=== PATIENT | female | born 1940 | race African-American/Black ===

== ENCOUNTER 2020-01-29 20:31 | Emergency (ER) | payer OTHER ==
[~2020-01-29] VITALS: Ht 152.4 cm; Wt 68.0 kg
[2020-01-29 21:50] VITALS: BP 157/71
[2020-01-29] MEDS ORDERED: ALLOPURINOL 10100 M3 PO (21:59)
[2020-01-29] MEDS ORDERED: ASA81BEC PO (22:00)
[2020-01-29] MEDS ORDERED: NORVASC 2.5 MG2.5 M1 PO (22:00)
[2020-01-29] MEDS ORDERED: CHLORTHALIDONE25 MG PO (22:01)
[2020-01-29] MEDS ORDERED: CLONIDINE HCL0.2 M2 PO (22:01)
[2020-01-29] MEDS ORDERED: PLAVIX 75 MG TA75 MG PO (22:01)
[2020-01-29] MEDS ORDERED: DIAZEPAM 10 MG10 M1 PO (22:06)
[2020-01-29] MEDS ORDERED: HYDRALAZINE 2525 M1 PO (22:07)
[2020-01-29] MEDS ORDERED: IRON325 PO (22:07)
[2020-01-29] MEDS ORDERED: GLIMEPIRIDE4 MG PO (22:07)
[2020-01-29] MEDS ORDERED: ISOSORBIDE MONO30 M1 PO (22:08)
[2020-01-29] MEDS ORDERED: IRBESARTAN300 MG PO (22:08)
[2020-01-29] MEDS ORDERED: LATANOPROST 0.7.5 ML EA. EYE (22:09)
[2020-01-29] MEDS ORDERED: BYSTOLIC10 MG PO (22:10)
[2020-01-29] MEDS ORDERED: METFORMIN HCL500 M3 PO (22:10)
[2020-01-29] MEDS ORDERED: ROXICODONE5 M2 PO (22:11)
[2020-01-29] MEDS ORDERED: KLOR-CON 10 ER10 MEQ PO (22:12)
[2020-01-29] MEDS ORDERED: PIOGLITAZONE15 MG PO (22:12)
== END 2020-01-29 22:45 | disposition home or self-care (01) ==
LOC: ER 20:31
DX: S39.012A Strain of muscle, fascia and tendon of lower back, initial encounter (principal); S09.90XA Unspecified injury of head, initial encounter; Z88.8 Allergy status to other drugs, medicaments and biological substances; Z91.013 Allergy to seafood; W19.XXXA Unspecified fall, initial encounter; Y93.89 Activity, other specified; Y92.89 Other specified places as the place of occurrence of the external cause; Y99.8 Other external cause status

== ENCOUNTER 2020-05-10 14:06 | Inpatient (IN) | payer OTHER ==
[~2020-05-10] VITALS: Ht 152.4 cm; Wt 85.3 kg
[~2020-05-10 14:06] MED LIST: ALLOPURINOL 10100 M3 PO; ASA81BEC PO; BYSTOLIC10 MG PO; CHLORTHALIDONE25 MG PO; CLONIDINE HCL0.2 M2 PO; DIAZEPAM 10 MG10 M1 PO; GLIMEPIRIDE4 MG PO; HYDRALAZINE 2525 M1 PO; IRBESARTAN300 MG PO; IRON325 PO; ISOSORBIDE MONO30 M1 PO; KLOR-CON 10 ER10 MEQ PO; LATANOPROST 0.7.5 ML EA. EYE; METFORMIN HCL500 M3 PO; NORVASC 2.5 MG2.5 M1 PO; PIOGLITAZONE15 MG PO; PLAVIX 75 MG TA75 MG PO; ROXICODONE5 M2 PO
[2020-05-10 14:07] VITALS: BP 180/71
[2020-05-10 14:51] LABS: HEMATOCRIT 25.6 % (37.0-47.0); HEMOGLOBIN 7.6 gm/dL (12.0-15.0); MCHC 29.6 g/dL (28.0-37.0)
[2020-05-10 14:54] LABS: MCH 19.5 pg (26.0-34.0); PLATELET COUNT 388 thou/uL (150-400); RBC 3.89 mil/uL (4.20-5.00); WBC 6.4 thou/uL (4.0-11.0)
[2020-05-10] MEDS ORDERED: METFORMIN HCL500 M3 PO (14:54)
[2020-05-10] MEDS ORDERED: PERCOCET 10-321 EAC1 PO (14:55)
[2020-05-10] MEDS ORDERED: GLIMEPIRIDE4 MG PO (14:55)
[2020-05-10] MEDS ORDERED: IRBESARTAN75 MG PO (14:56)
[2020-05-10 14:57] LABS: APTT 26.4 Seconds (24.5-32.8); INR 1.1; PROTIME 10.8 Seconds (9.3-11.4)
[2020-05-10] MEDS ORDERED: KLOR-CON 10 ER10 MEQ PO (14:57)
[2020-05-10] MEDS ORDERED: CHLORTHALIDONE25 MG PO (14:58)
[2020-05-10] MEDS ORDERED: PLAVIX 75 MG TA75 M1 PO (14:58)
[2020-05-10] MEDS ORDERED: NORVASC 2.5 MG2.5 M1 PO (14:58)
[2020-05-10] MEDS ORDERED: HYDRALAZINE 2525 M1 PO (14:59)
[2020-05-10 15:00] LABS: ANION GAP 10 mmol/L (7-16); BUN 15 mg/dL (7-18); CALCIUM 8.8 mg/dL (8.5-10.1); CHLORIDE 107 mmol/L (98-107); CO2 25 mmol/L (21-32); CREATININE 1.4 mg/dL (0.6-1.0); GLUCOSE 101 mg/dL (74-106); POTASSIUM 3.5 mmol/L (3.5-5.1); SODIUM 142 mmol/L (136-145)
[2020-05-10] MEDS ORDERED: PIOGLITAZONE15 MG (15:00)
[2020-05-10] MEDS ORDERED: BIDIL TABLET1 EACH PO (15:00)
[2020-05-10] MEDS ORDERED: CATAPRES0.1 MG PO (15:00)
[2020-05-10] MEDS ORDERED: VYZULTA5 ML OPHTHALMIC (15:00)
[2020-05-10] MEDS ORDERED: ALLOPURINOL 10100 M3 PO (15:01)
[2020-05-10] MEDS ORDERED: BYSTOLIC10 MG PO (15:01)
[2020-05-10] MEDS ORDERED: LANTUS SUBQ (15:02)
[2020-05-10 15:10] LABS: ALBUMIN 3.1 g/dL (3.4-5.0); MAGNESIUM 1.3 mg/dL (1.8-2.4); SGOT 26 U/L (15-37); SGPT 13 U/L (30-65); TOTAL BILIRUBIN 0.4 mg/dL (0.2-1.0); TOTAL PROTEIN 6.4 g/dL (6.4-8.2); TROPONIN-I <0.06 ng/mL (<0.06)
[2020-05-10 15:41] LABS: URINE BILIRUBIN NEGATIVE (Negative); URINE BLOOD 1+ (Negative); URINE CLARITY CLEAR; URINE COLOR YELLOW; URINE GLUCOSE-RANDOM* NEGATIVE (Negative); URINE KETONES NEGATIVE (Negative); URINE LEUKOCYTES-REFLEX NEGATIVE (Negative); URINE NITRITE-REFLEX NEGATIVE (Negative); URINE PROTEIN (DIPSTICK) NEGATIVE (Negative); URINE UROBILINOGEN 0.2 E.U./dl (0.2-1.0)
[2020-05-10 15:45] VITALS: BP 156/84
--- NOTE | 2020-05-10 16:02 | NUR ---
DR. ADAME HERE TO EXAMINE PATIENT
[2020-05-10 16:07] LABS: BACTERIA-REFLEX None Seen /HPF (None Seen); SQUAMOUS 0-3 Few /LPF (0-3); URINE RBC 0-2 Rare /HPF (0-2); URINE WBC-REFLEX 0-5 Rare /HPF (0-5)
[2020-05-10 16:08] LABS: CASTS None Seen /LPF (None Seen); CRYSTALS None Seen /LPF (None Seen)
[2020-05-10 16:12] LABS: ABSOLUTE NEUTROPHILS 4.9 thou/uL (1.4-8.2); ANISOCYTOSIS 1+; MICROCYTES 1+
[2020-05-10 16:17] LABS: AMP/METHAMP Negative (Negative); BARBITURATES Negative (Negative); BENZODIAZEPINES Negative (Negative); COCAINE Negative (Negative); METHADONE Negative (Negative); OPIATES Negative (Negative); PCP Negative (Negative)
[2020-05-10 17:21] VITALS: BP 182/87
--- NOTE | 2020-05-10 17:34 | NUR ---
PT. REPORT CALLED TO RECEIVING RN.
[2020-05-10 17:35] VITALS: BP 207/87
--- NOTE | 2020-05-10 17:41 | NUR ---
PT. TO CT SCAN WITHOUT CONTRAST PER DR. ADAME ORDERS.
[2020-05-10 18:48] VITALS: BP 156/84
[2020-05-10 18:50] LABS: ABSOLUTE RETIC COUNT 0.0589 10^6/uL; OBSERVED RETIC COUNT 1.47 % (0.6-2.6)
[2020-05-10 19:00] LABS: % SATURATION 4 % (20-39); IRON 12 ug/dL (50-170); TIBC 334 ug/dL (250-450)
[2020-05-10 19:00] LABS: CALCIUM 8.4 mg/dL (8.5-10.1); CREATININE 1.2 mg/dL (0.6-1.0); POTASSIUM 3.4 mmol/L (3.5-5.1)
[2020-05-10 19:38] LABS: TSH 0.739 uIU/mL (0.358-3.740)
--- NOTE | 2020-05-10 20:04 | NUR ---
PT CARE ASSUMED AT 1745. ASSESSMENT CHARTED. MEDICATION CHARTED. PT FALL AT HOME. LOW BLOOD SUGAR IN EMERGENCY AND IN PT ROOM. APPLE JUICE ADMINISTERED. NEW POC BLOOD SUGAR CAME BACK AT 109.
[2020-05-10 20:11] LABS: FOLIC ACID 14.2 ng/mL (8.6-58.9)
--- NOTE | 2020-05-10 20:35 | NUR ---
PT ADMITTED APPROX 1800HRS TOWARDS END OF SHIFT CHANGE. ADMISSION ASSESSMENT COMPLETED BY THIS NURSE ASSISTANCE BY DAUGHTER AT BEDSIDE. PT ADM WITH HYPOGLYCEMIA. PRIOR TO SHIFT CHANGE BS REPORTED TO BE 41. CRACKERS/ORANGE JUICE GIVEN BS RECHECKED 107 THEN RECHECKED AGAIN 90. EATING DISORDER SPECIALIST NOTIFIED. CONTINUING TO MONITOR EATING DISORDER SPECIALIST ADDRESSING ORDERS AT THIS TIME
[2020-05-11] VITALS: BP 151/75
[2020-05-11 04:30] VITALS: BP 175/77
[2020-05-11 04:41] LABS: HEMATOCRIT 26.1 % (37.0-47.0); HEMOGLOBIN 7.8 gm/dL (12.0-15.0); MCH 19.9 pg (26.0-34.0); MCV 66.2 fL (80.0-100.0); PLATELET COUNT 401 thou/uL (150-400); RBC 3.94 mil/uL (4.20-5.00); WBC 6.6 thou/uL (4.0-11.0)
[2020-05-11 05:08] LABS: ANISOCYTOSIS 3+; HYPOCHROMASIA 3+; MICROCYTES 3+; POIKILOCYTOSIS 2+
[2020-05-11 05:09] LABS: LARGE PLATELETS OCCASIONAL; OVALOCYTES 1+; SCHISTOCYTES 1+
[2020-05-11 07:54] VITALS: BP 158/91
--- NOTE | 2020-05-11 08:05 | NUR ---
ASSUMED CARE OF PT AT SHIFT CHANGE, SHE IS A&OX4, PT USES A WALKER AT HOME NORMALLY, SHE'S UPSET SHE HAS TO CALL US TO GO TO [facility]; EXPLAINED THE SAFETY ISSUES INVOLVED TOMAS W/HER HAVING BEEN FOUND DOWN WITH LOW BG. HTN NOTED THROUGHOUT NIGHT, HAS HYDRALAZINE PRN. LOW BG THIS A.M. NO MEDS ON EMAR TO GIVE SO GAVE TWO APPLE JUICES AND REACHED OUT TO PHYSICIAN; ADDRESSED PT'S HOME MED LIST LET THE DOCTOR KNOW MED REC READY, NPO STATUS WITH LOW BG (HAS D5 NS RUNNING). ENCOURAGED PT TO USE CALL LIGHT FOR ANY NEEDS. SHES HUNGRY. NPO YET NO PROCEDURE SCHEDULED; ASKED PHYSICIAN THIS WELL. SEE SEPARATE INTERVENTIONS FOR ASSESSMENTS. ENCOURAGED PT TO USE CALL LIGHT FOR ANY NEEDS
--- NOTE | 2020-05-11 10:10 | EKG ---
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
[2020-05-11 11:35] VITALS: BP 162/80
[2020-05-11 15:03] VITALS: BP 146/68
--- NOTE | 2020-05-11 15:24 | NUR ---
ORTHO B/PS: LAYING - 158/61 SITTING - 179/81 STANDING - 197/97
--- NOTE | 2020-05-11 15:39 | NUR ---
ORTHOSTATICS: LAYING - 158/61 SITTING - 179/81 STANDING - 197/97
[2020-05-11 19:20] VITALS: BP 147/76
--- NOTE | 2020-05-11 21:53 | NUR ---
ASSSESSMENTS CHARTED, MEDS CHARTED GIVEN. PATIENT RESTING IN ROOM DURING SHIFT. TRYING EXTERNAL FEMALE CATHETER DURING SLEEP TONIGHT. C/O CHRONIC PAIN 07/08. SAYS SHE VISITS A PAIN CLINIC IN ON LICENSE OF [facility], SPOKE WITH FORECLOSURE FIELD INSPECTOR TO GET MEDS RESTARTED. ACHS ON SSI. FALL PRECAUTIONS IN PLACE DURING SHIFT. PATIENT WANTING TO KNOW ABOUT RESULTS FROM SCANS AND LABS ABOUT OCCULT BLOOD.
[2020-05-12] VITALS (8 sets, daily range): BP systolic 123–156; BP diastolic 57–97
[2020-05-12 04:09] LABS: CALCIUM 7.9 mg/dL (8.5-10.1); CREATININE 1.3 mg/dL (0.6-1.0); POTASSIUM 3.5 mmol/L (3.5-5.1)
[2020-05-12 05:37] LABS: GLYCOHEMOGLOBIN (HGB A1C) 5.7 % (4.8-5.6)
--- NOTE | 2020-05-12 12:16 | HC ---
[facility] [place] [address] CONSULTATION Name: PILO GUERRIER Room #: 209-P ADM IN M.R.#: [id number] Admission: 05/10/20 Attend Phys: Reggie Odom MD Discharge: Date of : 38 Report #: [id number] THIS REPORT FOR: cc: TANNER - Family physician unknown TANNER - Family physician unknown Sofi Lowry MD ~ CC: Reggie Clinton MD [facility] unknown DATE OF SERVICE: 05/11/2020 ENDOCRINE CONSULTATION CONSULTING PHYSICIAN: Dr. Fischer. REASON FOR CONSULTATION: Type 2 diabetes mellitus, hypoglycemia. HISTORY OF PRESENT ILLNESS: This is a very pleasant 79-year-old female patient whose medical background is significant for multiple medical issues including type 2 diabetes mellitus, hypertension as well as a distant history of CVA. The patient notes that she has had type 2 diabetes mellitus for over 20 years. She has done well historically with multiple hemoglobin A1c in the 6 range over the past 2 years. She does point out that due to her hemoglobin A1c moving just above 7 that Lantus insulin was added to her regimen at a low dose of 6 units daily that was later on tapered down to 4 units daily. Her baseline regimen consists of metformin 500 mg b.i.d. as well as glimepiride 4 mg daily. She notes that she monitors her blood glucose values routinely and that they typically range from 90-150 mg/dL. She does not typically have issues with hypoglycemia. However, on the day of admission, the patient felt extremely tired, dizzy and as she tried to arise from bed she felt too weak and fallen to the floor and was lying down on the floor for 5 hours before her son found her and contacted EMS. On their arrival, her blood glucose was at 44 mg/dL. The patient was subsequently admitted for further care and monitoring. The patient is not aware of issues with diabetic retinopathy or neuropathy. She has never had issues with coronary artery disease. While she is not aware of a specific history of chronic kidney disease she seems to have issues in this regard. The patient is also known to have hypertension and is maintained on a combination of irbesartan 300 mg daily, amlodipine 10 mg daily, chlorthalidone 25 mg daily and hydralazine 25 mg q.i.d. Also, she is on clonidine 0.2 mg p.o. b.i.d. [address] [address] CONSULTATION Name: PILO GUERRIER Room #: 209-P [facility] IN .R.#: [id number] Admission: 05/10/20 Attend Phys: Reggie Odom MD Discharge: Date of : 38 Report #: [id number] While the patient denies the issue of CAD, she is maintained on Plavix 75 mg daily and Imdur 30 mg daily. REVIEW OF SYSTEMS: CONSTITUTIONAL: Fatigue, tiredness, no fever, chills or body weight changes. HEENT: Negative for sore throat, sinus pain or ear drainage. PULMONARY: No shortness of breath, cough or hemoptysis. CARDIAC: Negative for chest pain, palpitations, but she possibly had endured syncope prior to presentation. No chest pain. GASTROINTESTINAL: Negative for abdominal pain, nausea, vomiting or changes in bowel frequency. NEUROLOGY: Negative for seizure activity, severe frequent headaches, but possibly positive for loss of consciousness. DERMATOLOGY: Negative for rash, ulceration, discoloration or other major abnormalities. UROLOGY: Negative for dysuria, hematuria, or frequency. Otherwise, review of systems noncontributory other than those mentioned in HPI. PAST MEDICAL HISTORY: 1. Type 2 diabetes mellitus. 2. Hypertension. 3. 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 4. Gout. 5. Osteoarthritis. PAST SURGICAL HISTORY: Cholecystectomy, hysterectomy, colon surgery. FAMILY HISTORY: Noted for breast cancer and lung cancer. ALLERGIES: THE PATIENT IS ALLERGIC TO IODINATED CONTRAST AND TO SHELLFISH. SOCIAL HISTORY: The patient lives at an assisted living facility. She has 5 children. She had quit smoking more than 15 years ago. Denies use of alcohol. PHYSICAL EXAMINATION: GENERAL: Pleasant -Nigerien elderly patient who is not in apparent pain or distress. VITAL SIGNS: Blood pressure is 162/80 mmHg, heart rate is 70 beats per minute, respiration 18 per minute, temperature 36.8 degrees Celsius. CONSTITUTIONAL: The patient is sitting upright in bed, appears comfortable, not in apparent distress. HEENT: Anicteric sclerae. Intact extraocular motions. NECK: Supple, without JVD or thyromegaly. CHEST: Noted for moderate entry bilaterally with scattered rales. HEART: Regular rate and rhythm without murmurs or gallops. ABDOMEN: Soft, lax. No guarding. Active bowel sounds. [address] [address] CONSULTATION Name: FAREEDPILO PINA Room #: 209-P [facility] IN M.R.#: [id number] Admission: 05/10/20 Attend Phys: Reggie Odom MD Discharge: Date of : 38 Report #: [id number] EXTREMITIES: Lower extremity exam noted for trace ankle edema, skin breaks, ulcerations. Pedal pulses are appreciated. NEUROLOGIC: Awake, alert and oriented to time, place and person. The remainder of her examination is nonfocal. PSYCHIATRIC: Pleasant, interactive. Normal mood and affect. LABORATORY DATA: On arrival to the ER, her blood glucose was 41 and had risen to 107, 121, but then dropped later on to 60 mg/dL earlier this morning and is currently at 125 mg/dL. Sodium 143, potassium 3.4, chloride 108, CO2 of 25, anion gap 10, BUN 14, creatinine 1.2, AST 26, total bilirubin 0.4, calcium 8.4, magnesium 1.3, alkaline phosphatase 60, ALT 13, total protein 6.4, albumin 3.1, EGFR 52. CPK 264. Troponin is negative. BNP 1085. INR 1.1. White blood count 6.6, hemoglobin 7.8, hematocrit 26.1, platelets 401. TSH is 0.739. ASSESSMENT AND PLAN: 1. Hypoglycemia. As noted above, the patient presented in the context of severe hypoglycemia likely due to her current therapeutic regimen. I had a lengthy discussion with the patient about the importance of avoiding hypoglycemia in the future, which she understands and agrees with. Noticeably, the patient has had recurring mild to moderate hypoglycemia following her initial stabilization. Her last documented hypoglycemic episode at 60 was about 6 hours ago. That said, I would ____ the patient to maintain inpatient monitoring until we have effectively ensured the full resolution of hypoglycemia. Going forward, I advised the patient to fully discontinue Lantus insulin given the small dose that she is on, as well as DC glimepiride and switch over to glipizide XL 5 mg daily on the hopes of avoiding hypoglycemia going forward. In the immediate setting, we will continue to monitor her hypoglycemia closely and to respond to hypoglycemic occurring as per the [facility] hypoglycemia protocol. 2. Type 2 diabetes mellitus. As noted above, the patient has historically maintained a fairly well controlled outlook of type 2 diabetes mellitus and has been following routinely with Dr. Clinton. Reportedly, her hemoglobin A1c was uncontrolled for the first time in a while a few months ago, which prompted the use of low-dose insulin. I will check a hemoglobin A1c today to assess her overall outlook. As noted above, I have made recommendations with the main goal of reducing her risk of hypoglycemia, especially that she lives alone. I will defer longer term adjustments to Dr. Clinton; however, I explained to the patient that even if we end up settling for a hemoglobin A1c that is slightly above 7, so as to avoid hypoglycemia that that would be a reasonable compromise to make. 3. Hypertension. The patient is maintained on multiple agents for blood pressure control. She has been resumed on Bystolic, Imdur, hydralazine, and still continues to have difficulties controlling her blood pressure during this hospital stay. I will defer further therapeutic adjustments to the managing [address] [address] CONSULTATION Name: FAREEDPILOE Room #: 209-P ADM IN M.R.#: [id number] Admission: 05/10/20 Attend Phys: Reggie Odom MD Discharge: Date of : 38 Report #: [id number] primary hospital medicine team. I certainly appreciate this consultation by Dr. Fischer. <ELECTRONICALLY SIGNED> By: Sofi Lowry MD 05/12/20 1216 1403 1709 Sofi Lowry MD /nt
[2020-05-12 14:31] LABS: HEMOGLOBIN 7.4 gm/dL (12.0-15.0)
--- NOTE | 2020-05-12 16:40 | NUR ---
PT ALERT AND ORIENTED WITH FORGETFULNESS. VSS. SEEN BY DR. RICHEY. ORDERS NOTED. NO RESPIRATORY OR CARDIAC DISTRESS NOTED. PT PROGRESSING WELL TOWARDS DISCHARGE GOAL. WILL CONTINUE TO MONITOR.
[2020-05-13] VITALS (7 sets, daily range): BP systolic 121–157; BP diastolic 54–66
--- NOTE | 2020-05-13 04:57 | NUR ---
ALERT AND OREINTED X4. LUNGS ARE CLEAR THROUGHOUT. ON ROOM AIR. ABDOMEN IS ROUND AND SOFT. BOWEL SOUNDS ACTIVE X4. COMPLAINTS OF LEFT UPPER LEG PAIN AND ULTRSOUND DONE DUE TO COMPLAINTS OF PAIN PER RADIOLOGY. RESULTS NEGATIVE PER RADIOLOGY. PAIN MEDS GIVEN FOR AREA. PT STATES DUE TO A HOME FALL SHE HAD AT HOME. PT NEED STRENGHTHENING BEFORE RETURNS TO HOME. USES A WALKER AND A BEDSIDE COMMODE FOR ASSISTANCE AND NURSING STAFF SUPPORT. ICE PACK HELPS THAT AREA FOR DISCOMFORT AND MEDS. CALL LIIGHT WITHIN REACH IF NEEDS ASSISTANCE
--- NOTE | 2020-05-13 10:56 | NUR ---
Sp with patient by phone. Patient resides in independent apt at [facility]. She reports all needs on one level and uses a walker for ambulation. Patient admits post fall at home. She is interested in HH care at [facility] and [facility]. Called referral line for [facility] with [facility]. [place]. Patient agreeable to HH care and not preference for HH agency. Her PCP is Dr Kirby [phone]. Resources given for private duty and lifeline services given to patient.
--- NOTE | 2020-05-13 11:22 | NUR ---
FAXED REFERRAL TO [facility] SPOKE WITH YAMIL IN INTAKE SHE RECEIVED REFERRAL AND WILL ACCEPT AT [place].
[2020-05-13] MEDS ORDERED: HYDRALAZINE 5050 MG PO (11:52)
[2020-05-13] MEDS ORDERED: VOLTAREN GEL 1100 G1 TOP (11:52)
[2020-05-13] MEDS ORDERED: B-12500 MCG PO (11:52)
[2020-05-13] MEDS ORDERED: COZAAR 50 MG TA50 M1 PO (11:52)
[2020-05-13] MEDS ORDERED: FERREX 150 PLU1 EAC1 PO (11:52)
[2020-05-13] MEDS ORDERED: GLUCOPHAGE1000 MG PO (11:52)
[2020-05-13] MEDS ORDERED: CATAPRES0.1 MG PO (11:55)
--- NOTE | 2020-05-13 12:51 | NUR ---
RECEIVED PT'S CARE AROUND 0720; PT. ON BED; AOX4; DURING AM ASSESSMENT ON CHAIR; NO C/O PAIN; ST. PRN PAIN MEDICATION GIVEN BEFORE SHIFT CHANGE HELPED WITH PAIN; AM MEDICATION GIVEN & EDUCATED ABOUT NEW MEDICATION; EDUCATED ABOUT FALL PREVENTIONS; ST. UNDERSTANDING; EDUCATED ABOUT D/C PROCESS; ST. UNDERSTANDING; SR ON THE MONITOR; PT WORKED WITH PT.; TOLERATED WELL; D/C ORDERS ON PLACE; PER CAN TENDER SET UP FOR PT AT D/C; WORKING ON D/C ORDERS; ASSESSMENT CHARGED; FOLLOWED POC;
--- NOTE | 2020-05-13 13:58 | NUR ---
PT DISCHARGING TODAY TO HOME WITH [facility] FAXED DC ORDERS/SUMMARY RECEIVED CONFIRMATION AND SPOKE WITH YAMIL IN INTAKE SHE WILL NOTIFY PT TO SET UP VISITS.
--- NOTE | 2020-05-13 15:31 | NUR ---
spoke with patient regarding she does not have medicaid that covers home based services. Her medicaid does not have that benefit. Discussed HH care to come to home and requested SW visit to further connect for community resources. Patient has pvt dty list, lifestyle booklet for resources and lifeline information. Patient reports she had lifeline in past and plans to get the service again [place]. Plan home with HH care no further needs.
== END 2020-05-13 15:54 | disposition home health service (06) | DRG 638 ==
LOC: ER 14:06 → 2N 15:59 → EROBS 15:59 → 2N 17:42
PROVIDERS: Emergency Medicine; Internal Medicine; ADMIT Hospitalist; ATTEND Hospitalist
DX: E11.649 Type 2 diabetes mellitus with hypoglycemia without coma (principal); I16.1 Hypertensive emergency; N17.9 Acute kidney failure, unspecified; D50.9 Iron deficiency anemia, unspecified; E86.0 Dehydration; K57.90 Diverticulosis of intestine, part unspecified, without perforation or abscess without bleeding; K21.9 Gastro-esophageal reflux disease without esophagitis; Z60.2 Problems related to living alone; G47.00 Insomnia, unspecified; E53.8 Deficiency of other specified B group vitamins; R19.7 Diarrhea, unspecified; I10 Essential (primary) hypertension; E83.42 Hypomagnesemia; D64.9 Anemia, unspecified; M10.9 Gout, unspecified; M19.90 Unspecified osteoarthritis, unspecified site; Z79.84 Long term (current) use of oral hypoglycemic drugs; Z79.899 Other long term (current) drug therapy; Z79.01 Long term (current) use of anticoagulants; Z91.041 Radiographic dye allergy status; Z87.891 Personal history of nicotine dependence; Z86.73 Personal history of transient ischemic attack (TIA), and cerebral infarction without residual deficits; Z91.013 Allergy to seafood; Z90.49 Acquired absence of other specified parts of digestive tract; Z90.710 Acquired absence of both cervix and uterus; Z80.3 Family history of malignant neoplasm of breast; Z80.1 Family history of malignant neoplasm of trachea, bronchus and lung
CPT/HCPCS: 10081

== ENCOUNTER 2020-11-02 14:43 | Inpatient (IN) | payer OTHER ==
[~2020-11-02] VITALS: Ht 157.5 cm; Wt 87.6 kg
[~2020-11-02 14:43] MED LIST changes: +B-12500 MCG PO; +BIDIL TABLET1 EACH PO; +CATAPRES0.1 MG PO; +COZAAR 50 MG TA50 M1 PO; +FERREX 150 PLU1 EAC1 PO; +GLUCOPHAGE1000 MG PO; +HYDRALAZINE 5050 MG PO; +IRBESARTAN75 MG PO; +LANTUS SUBQ; +PERCOCET 10-321 EAC1 PO; +PIOGLITAZONE15 MG; +PLAVIX 75 MG TA75 M1 PO; +VOLTAREN GEL 1100 G1 TOP; +VYZULTA5 ML OPHTHALMIC
[2020-11-02 14:50] VITALS: BP 251/117
[2020-11-02 16:01] LABS: ABSOLUTE NEUTROPHILS 8.7 thou/uL (1.4-8.2); BASOPHILS 0.3 % (0.0-2.0); HEMATOCRIT 38.2 % (37.0-47.0); HEMOGLOBIN 11.6 gm/dL (12.0-15.0); LYMPHOCYTES 6.7 % (24.0-44.0); MCH 24.8 pg (26.0-34.0); MCHC 30.5 g/dL (28.0-37.0); MCV 81.4 fL (80.0-100.0); PLATELET COUNT 280 thou/uL (150-400); RBC 4.69 mil/uL (4.20-5.00); RDW 18.5 % (10.5-14.5); WBC 10.1 thou/uL (4.0-11.0)
[2020-11-02 16:08] LABS: CALCIUM 9.7 mg/dL (8.5-10.1); CREATININE 2.4 mg/dL (0.6-1.0); POTASSIUM 3.2 mmol/L (3.5-5.1)
[2020-11-02 16:12] LABS: ALBUMIN 3.4 g/dL (3.4-5.0); DIRECT BILIRUBIN 0.2 mg/dL (<0.1-0.2); TOTAL BILIRUBIN 0.5 mg/dL (0.2-1.0); TOTAL PROTEIN 7.1 g/dL (6.4-8.2)
[2020-11-02 16:39] LABS: ANISOCYTOSIS 2+; POIKILOCYTOSIS SLIGHT
[2020-11-02 18:08] LABS: URINE BLOOD 3+ (Negative); URINE CLARITY CLEAR; URINE COLOR YELLOW; URINE GLUCOSE-RANDOM* 1+ (Negative); URINE KETONES TRACE (Negative); URINE LEUKOCYTES-REFLEX NEGATIVE (Negative); URINE NITRITE-REFLEX NEGATIVE (Negative); URINE PROTEIN (DIPSTICK) 3+ (Negative); URINE SPECIFIC GRAVITY >= 1.030 (1.005-1.035); URINE UROBILINOGEN 0.2 E.U./dl (0.2-1.0)
[2020-11-02 18:10] LABS: ICTOTEST (BILI CONFIRMATORY) Negative (Negative); URINE BILIRUBIN NEGATIVE (Negative)
[2020-11-02 18:20] LABS: AMORPHOUS URATES Few /LPF (None Seen); BACTERIA-REFLEX None Seen /HPF (None Seen); CASTS None Seen /LPF (None Seen); SQUAMOUS 0-3 Few /LPF (0-3); URINE RBC 0-2 Rare /HPF (0-2); URINE WBC-REFLEX 0-5 Rare /HPF (0-5)
[2020-11-02 19:28] VITALS: BP 161/74
--- NOTE | 2020-11-02 19:28 | EKG ---
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: ALEJANDRO : 1940 Requested By: Julianna Nj Order Number: [id number] MD: Jayden Gurrola Measurements Intervals [place] Rate: 83 P: 36 [place]: 128 QRS: -42 QRSD: 104 T: 47 QT: 401 QTc: 472 Interpretive Statements Sinus rhythm Abnormal R-wave progression, early transition Left ventricular hypertrophy Compared to ECG 05/10/2020 14:31:25 Atrial premature complex(es) no longer present Electronically Signed On 11-02-2020 19:28:51 SUBSTANCE ABUSE RN by Jayden Gurrola [email or web address] <ELECTRONICALLY SIGNED> By: Jayden Gurrola MD, [facility] 11/02/20 1928 1500 1500 Jayden Gurrola MD, [facility] /EPI
--- NOTE | 2020-11-02 19:35 | NUR ---
FIRST ATTEMPT AT REPORT. NURSE NOT AVAILABLE
[2020-11-02] MEDS ORDERED: AMARYL4 MG PO (20:19)
[2020-11-02 20:25] VITALS: BP 176/91
[2020-11-02] MEDS ORDERED: CHLORTHALIDONE25 MG PO (20:27)
[2020-11-02] MEDS ORDERED: ALLOPURINOL 10100 M3 PO (20:28)
[2020-11-02] MEDS ORDERED: ACTOS15 MG PO (20:28)
[2020-11-02 20:29] VITALS: BP 176/97
[2020-11-02 20:30] VITALS: BP 176/91
[2020-11-03] VITALS (21 sets, daily range): BP systolic 145–229; BP diastolic 67–103
[2020-11-03 04:50] LABS: CALCIUM 9.1 mg/dL (8.5-10.1); CREATININE 1.8 mg/dL (0.6-1.0); MAGNESIUM 1.3 mg/dL (1.8-2.4); PHOSPHORUS 2.9 mg/dL (2.5-4.9); TOTAL BILIRUBIN 0.4 mg/dL (0.2-1.0); TOTAL PROTEIN 6.4 g/dL (6.4-8.2)
[2020-11-03 04:53] LABS: POTASSIUM 2.9 mmol/L (3.5-5.1)
[2020-11-03 05:05] LABS: ABSOLUTE NEUTROPHILS 8.8 thou/uL (1.4-8.2); BASOPHILS 0.4 % (0.0-2.0); EOSINOPHILS 0.1 % (0.0-3.0); HEMOGLOBIN 10.8 gm/dL (12.0-15.0); LYMPHOCYTES 7.9 % (24.0-44.0); MCH 24.9 pg (26.0-34.0); MCHC 30.9 g/dL (28.0-37.0); MCV 80.7 fL (80.0-100.0); PLATELET COUNT 223 thou/uL (150-400); POLYS 83.6 % (36.0-66.0); RBC 4.33 mil/uL (4.20-5.00); RDW 17.7 % (10.5-14.5); WBC 10.5 thou/uL (4.0-11.0)
--- NOTE | 2020-11-03 06:07 | NUR ---
PT WAS A NEW ADMISSION FROM ER FOR HYPERTENSIVE EMERGENCY AND AMS, PT ARRIVED ON THE FLOOR AROUND 2014, PT IS AWAKE, ALERT AND ORIENTED TO SELF,WITH INCOMPREHENSIVE WORDS, ADMISSION ASSESSMENT LIMITED DUE TO PATIENTS AMS, ASESSMENTS CHARTED, SR ON THE MONITOR, PT WAS ON CARDENE GTT, BP STABLE, CARDENE WAS STOPPED PER ORDERS, FLUID INITIATED, POTASSIUM REPLACED AND WILL RECHECK THIS AM, MEDS GIVEN PER JAN, BP HIGH THIS MORNING, HYDRALIZINE GIVEN PRN, BP REMAINS HIGH, ORDERS TO RESTART CARDENE OBTAINED, WILL MONITOR, LAYING IN BED, NO DISTRESS NOTED, ADEQUATE AMOUNT FROM LOPEZ, WILL PASS ON REPORT
--- NOTE | 2020-11-03 20:44 | NUR ---
ASSUMMED PT CARE AT APPROXIMATELY 0700. PT A&O X1 AT BEGINNING OF SHIFT. PT A&O X2 AND COVERSING WITH DAUGHTER AND STAFF BY END OF SHIFT. ASSESSMENT CHARTED. FALL PRECAUTIONS IN [place]. PT DENIES HAVING CHEST PAIN. PT DENIES HAVING SOB. PT DENIES HAVING ACUTE PAIN. PT'S BP ELEVATED IN AM. TITRATING PROTOCOL FOR CARDENE. BP DECREASED. VITAL SIGNS STABLE. BLOOD SUGAR STABLE. INFORMED PT AND PT'S FAMILY ABOUT POC. PT'S AND PT'S FAMILY STATED UNDERSTANDING AND DENIED HAVING FURTHER CONCERNS. DIET CHANGED. PT TODLERATING DIET.
[2020-11-04] VITALS (7 sets, daily range): BP systolic 146–181; BP diastolic 59–88
--- NOTE | 2020-11-04 03:56 | NUR ---
ASSUMED CARE OF PATIENT AT 1900. BP ELEVATED. CARDINE GTT RESUMED. GOOD URINE OUTPUT. DENIES PAIN. WORKING TOWARDS POC GOALS.
[2020-11-04 04:32] LABS: CALCIUM 8.6 mg/dL (8.5-10.1); CREATININE 1.6 mg/dL (0.6-1.0); MAGNESIUM 1.5 mg/dL (1.8-2.4)
[2020-11-04 04:45] LABS: EOSINOPHILS 0.7 % (0.0-3.0); HEMOGLOBIN 10.5 gm/dL (12.0-15.0); MONOCYTES 10.5 % (1.0-8.0); WBC 8.6 thou/uL (4.0-11.0)
[2020-11-04 04:46] LABS: POTASSIUM 2.6 mmol/L (3.5-5.1)
[2020-11-04 04:48] LABS: ABSOLUTE NEUTROPHILS 6.3 thou/uL (1.4-8.2); BASOPHILS 0.6 % (0.0-2.0); HEMATOCRIT 33.3 % (37.0-47.0); LYMPHOCYTES 14.4 % (24.0-44.0); MCH 25.8 pg (26.0-34.0); MCHC 31.4 g/dL (28.0-37.0); MCV 82.1 fL (80.0-100.0); PLATELET COUNT 203 thou/uL (150-400); POLYS 73.8 % (36.0-66.0); RBC 4.05 mil/uL (4.20-5.00); RDW 17.6 % (10.5-14.5)
--- NOTE | 2020-11-04 12:11 | NUR ---
Met with patient who admits with AMS. Patient resides in independent [facility]. She uses a walker for ambulation. Patient able to say its 2020. She belives month is November. She is not aware of surroundings and mumbled an address for her home. Sp with son who reports his sister went to [facility] and patient on commode. When she returned patient still on commode and confused. Son reports his sister is contact for discussing rehab options. He reports he drives patient to [facility] but if patient inclined she may go to [facility] and drives herself. She has been independent with bathing and self care. Casemgt following for dc planning.
--- NOTE | 2020-11-04 18:12 | NUR ---
ASSUMED CARE AT CHANGE OF SHIFT. ALERT X4, DENIES SOB. UP WITH WALKER AX1, MRI COMPLETED C REPORT. CARDENE DRIP STOPPED SBP LESS THEN 160. SCHEDULED MEDS GIVEN PER ORDERS.LOPEZ IN PLACE VOIDS PER COMMODE. PERSONAL ITEMS IN REACH.
[2020-11-05] VITALS (9 sets, daily range): BP systolic 142–183; BP diastolic 55–94
--- NOTE | 2020-11-05 04:23 | NUR ---
ASSUMED CARE 1900. PT ALERT AND ORIENTED. STARTED ON AMPLODOPINE LAST NIGHT. INITIAL BP BETTER CONTROLLED. DENIES CHEST PAIN, SOB, NAUSEA VOMITING OR DIARRHEA. NO FEVER. WILL CONTINUE TO MONITOR AND FOLLOW POC.
[2020-11-05] MEDS ORDERED: CLONIDINE1 EACH TRANSDERM (12:22)
[2020-11-05] MEDS ORDERED: CLOPIDOGREL75 MG PO (12:22)
[2020-11-05] MEDS ORDERED: NORVASC5 MG PO (12:33)
[2020-11-05] MEDS ORDERED: IMDUR 30 MG TAB30 M1 PO (12:39)
--- NOTE | 2020-11-05 15:39 | 2DMMODE ---
[facility] [address] [place] [address] 2 D/M-MODE ECHOCARDIOGRAM Name: PILO GUERRIER Room #: 211-P ADM IN M.R.#: [id number] Admission: 11/02/20 Attend Phys: Swati Mccray MD Discharge: Date of : 38 Report #: [id number] THIS REPORT FOR: cc: FAM - Family physician unknown FAM - Family physician unknown Manuel Parrish MD ~ APPROVED REPORT Study performed: 11/05/2020 14:05:18 EXAM: Comprehensive 2D, Doppler, and color-flow Echocardiogram Patient Location: Bedside Room #: 211 Status: routine BSA: 1.88 HR: 74 bpm BP: 178/83 mmHg Rhythm: NSR Other Information Study Quality: Good Indications CVA/TIA Diabetes Hypertension/HDD Echo Enhancing Agent Indication: Rule out Shunt Agent(s) / Amount(s) Used: Agitated Saline 7 cc 2D Dimensions RVDd: 35.83 mm IVSd: 10.46 (7-11mm) LVOT Diam: 19.56 (18-24mm) LVDd: 51.91 mm PWd: 12.81 (7-11mm) Ascending Ao: 28.87 (22-36mm) LVDs: 36.45 (25-40mm) Aortic Root: 27.88 mm IVC: 21.00 mm Volumes Left Atrial Volume (Systole) Single Plane 4CH: 47.39 mL Single Plane 2CH: 45.95 mL LA ESV Index: 27.00 mL/m2 [facility] [address] [place] [address] 2 D/M-MODE ECHOCARDIOGRAM Name: FAREEDPILO HELLER Room #: 211-P [facility] IN M.R.#: [id number] Admission: 11/02/20 Attend Phys: Swati Mccray, Discharge: Date of : 38 Report #: [id number] Aortic Valve AoV Peak Kadeem.: 1.98 m/s AO Peak Gr.: 15.64 mmHg LVOT Max P.49 mmHg LVOT Max V: 1.17 m/s CHEN Vmax: 1.78 cm2 Mitral Valve E/A Ratio: 0.7 MV Decel. Time: 300.52 ms MV E Max Kadeem.: 0.71 m/s MV A Kadeem.: 0.95 m/s MV PHT: 87.15 ms IVRT: 110.73 ms Pulmonary Valve PV Peak Kadeem.: 1.16 m/s PV Peak Gr.: 5.42 mmHg Pulmonary Vein P Vein S: 0.53 m/s P Vein A: 0.29 m/s P Vein D: 0.35 m/s P Vein A Dur.: 152.2 msec P Vein S/D Ratio: 1.51 Tricuspid Valve TR Peak Kadeem.: 2.82 m/s TR Peak Gr.: 31.87 mmHg PA Pressure: 42.00 mmHg Left Ventricle The left ventricle is normal size. There is normal LV segmental wall motion. There is normal left ventricular wall thickness. The left ventricular systolic function is normal. LVEF is 55-60%. Grade I - abnormal relaxation pattern. Right Ventricle The right ventricle is normal size. The right ventricular systolic function is normal. Atria Left atrium is at the upper limits of normal. Right atrium is at the upper limits of normal. Aortic Valve The aortic valve is normal in structure. The Aortic valve is sclerotic. No aortic regurgitation is present. There is no aortic valvular stenosis. [facility] [address] [place] [address] 2 D/M-MODE ECHOCARDIOGRAM Name: PILO GUERRIER Room #: 211-P ADM IN M.R.#: [id number] Admission: 11/02/20 Attend Phys: Swati Mccray, Discharge: Date of : 38 Report #: [id number] Mitral Valve The mitral valve is normal in structure. Mild mitral regurgitation. No evidence of mitral valve stenosis. Tricuspid Valve The tricuspid valve is normal in structure. There is mild tricuspid regurgitation. Estimated PAP 38 mmHg. Pulmonic Valve The pulmonary valve is normal in structure. There is no pulmonic valvular regurgitation. Great Vessels The aortic root is normal in size. IVC is dilated and collapses >50% with inspiration. Pericardium There is no pericardial effusion. <Conclusion> The left ventricle is normal size. There is normal left ventricular wall thickness. The left ventricular systolic function is normal. Grade I - abnormal relaxation pattern. The right ventricle is normal size. Left atrium is at the upper limits of normal. The Aortic valve is sclerotic. Mild mitral regurgitation. There is mild tricuspid regurgitation. Estimated PAP 38 mmHg. <ELECTRONICALLY SIGNED> By: Manuel Parrish MD 11/05/20 1538 1538 1538 Manuel Parrish MD /INF
--- NOTE | 2020-11-05 16:11 | NUR ---
ASSUMED CARE OF PT AT SHIFT CHANGE. ASSESSMENTS CHARTED. MEDS GIVEN PER MAR. NO C/O PAIN OR DISTRESS. CHELSY RODRÍGUEZ'Ramirez, ON ORAL HTN MEDS. PLAN TO GO TO [facility] TOMORROW. WILL CONTINUE TO MONITOR AND FOLLOW POC.
--- NOTE | 2020-11-05 17:04 | NUR ---
Patient evaled by [facility] and accepting. Sp with dtr who is in agreement with plan. Tenative plan transfer to [facility] in am.
--- NOTE | 2020-11-05 18:44 | NUR ---
I have reviewed the documentation by SUSANNA MORALES from 11/06/20 to 11/05/20 and I concur with it. ITALIA COUCH
--- NOTE | 2020-11-06 03:26 | NUR ---
PT ALERT AND ORIENTED. NO EVENTS OVERNIGHT. ASSESSMENTS DOCUMENTED. MONITORING VITALS OVENIGHT. REMAINS SR. DENIES CHEST PAIN. NAUSEA, VOMITING OR DIARRHEA. PT PLAN TO D/C TO REHAB THIS AM. WILL CONTINUE TO MONITOR.
[2020-11-06 03:46] VITALS: BP 185/95
[2020-11-06 06:40] VITALS: BP 171/72
[2020-11-06 10:00] LABS: CALCIUM 8.6 mg/dL (8.5-10.1); CREATININE 1.5 mg/dL (0.6-1.0)
[2020-11-06 11:06] VITALS: BP 142/54
[2020-11-06 11:07] VITALS: BP 141/67
[2020-11-06 11:08] VITALS: BP 126/82
[2020-11-06] MEDS ORDERED: COZAAR 25 MG TA25 M1 PO (11:54)
[2020-11-06] MEDS ORDERED: KLOR-CON M2020 MEQ PO (11:55)
[2020-11-06 13:00] LABS: CHOLESTEROL 159 mg/dL (<200); HDL CHOLESTEROL 67 mg/dL (>40); LDL CHOLESTEROL 74 mg/dL (<100); TC:HDL 2.4 Ratio (Not establshd); TRIGLYCERIDE 93 mg/dL (<150); VLDL 19 mg/dL (<40)
[2020-11-06] MEDS ORDERED: LIPITOR 20 MG T20 M1 PO (13:32)
--- NOTE | 2020-11-06 15:59 | NUR ---
Prime time rounds this am. Dr Odom reports in rounds possible dc in am.
[2020-11-06 20:48] VITALS: BP 138/72
--- NOTE | 2020-11-06 21:58 | NUR ---
Patient remains A/O X4. DENIES SOA. VSS. AFEBRILE. PT HAS TX ORDERS TO FLOOR. REPORT CALLED TO 4TH FLOOR RN. PATIENT OFF THE UNIT AT APPROX 2200. ALL BELONGINGS TAKEN WITH THE PATIENT. ALL QUESTIONS ANSWERED. DENIES NEEDS.
[2020-11-07 07:46] VITALS: BP 141/63
[2020-11-07] MEDS ORDERED: HYDRALAZINE 5050 MG PO (10:06)
--- NOTE | 2020-11-07 10:46 | NUR ---
discuss during prime time, possible 5n today vs home with h[facility] if needs. pt wanting to go home. consuelo to work physical therapy and will make a choice for dc today. will cont following as needed for dc needs.
--- NOTE | 2020-11-07 11:31 | NUR ---
FAXED REFERRAL TO [facility] SPOKE WITH YAMIL IN INTAKE SHE RECEIVED REFERRAL AND WILL ACCEPT.
[2020-11-07 11:34] VITALS: BP 141/63
--- NOTE | 2020-11-07 13:35 | NUR ---
ASSUMED PT CARE THIS AM. PT VSS, A&OX4. PT COOPERATIVE AND PLEASANT THIS AM, BUT THROUGHOUT THE DAY HAS BECOME FUSSY WITH STAFF. PT IN CHAIR, AMBULATES TO THE RESTROOM. BLOOD SUGAR MANAGED WITH MEDS PER EMAR. PT HAS NO COMPLAINTS OF PAIN. PT WAS TO GO TO 5N TODAY, BUT HAS DECIDED THAT SHE WANTS TO GO HOME WITH HOME HEALTH INSTEAD. PT STATING THAT SHE ISN'T GOING ANYWHERE TODAY, BUT DR ADVISED THERE IS NO MEDICAL REASON TO KEEP HER TODAY. IV PATENT, HYDRATION ENCOURAGED.
[2020-11-07] MEDS ORDERED: ADULT LOW DOSE81 MG PO (14:05)
--- NOTE | 2020-11-07 15:58 | NUR ---
PATIENT SEEN BY DIRECTOR OF INDIVIDUAL GIVING TODAY. [facility]UTE REHAB STAY OFFERED AN OPTION FOR DISCHARGE PRIOR TO RETURNING TO HOME. AFTER RECEIVING PERMISSION FROM PATIENT, SPOKE WITH PATIENT'S DAUGHTER ABOUT REHAB OPTION. PATIENT DECIDED TO RETURN TO HOME. DAUGHTER ADVISED THAT PATIENT LIKELY TO REQUIRED INCREASED ASSISTANCE UPON RETURN TO HOME ENVIRONMENT.
[2020-11-08] MEDS ORDERED: KLOR-CON M2020 MEQ PO (16:45)
== END 2020-11-07 15:34 | DRG 64 ==
LOC: ER 14:43 → EROBS 18:30 → 2N 18:30 → 4W 11-06 22:54
PROVIDERS: Emergency Medicine; Hospitalist; Psychiatry & Neurology Neurology; Psychiatry & Neurology Neuromuscular Medicine; ADMIT Internal Medicine; ATTEND Internal Medicine
DX: I63.9 Cerebral infarction, unspecified (principal); G93.41 Metabolic encephalopathy; N17.0 Acute kidney failure with tubular necrosis; I16.0 Hypertensive urgency; M19.90 Unspecified osteoarthritis, unspecified site; G89.29 Other chronic pain; D50.9 Iron deficiency anemia, unspecified; E86.0 Dehydration; E87.6 Hypokalemia; E83.42 Hypomagnesemia; G47.00 Insomnia, unspecified; N18.2 Chronic kidney disease, stage 2 (mild); Z60.2 Problems related to living alone; E11.319 Type 2 diabetes mellitus with unspecified diabetic retinopathy without macular edema; I12.9 Hypertensive chronic kidney disease with stage 1 through stage 4 chronic kidney disease, or unspecified chronic kidney disease; E11.22 Type 2 diabetes mellitus with diabetic chronic kidney disease; Z91.041 Radiographic dye allergy status; Z91.013 Allergy to seafood; Z87.891 Personal history of nicotine dependence; Z80.3 Family history of malignant neoplasm of breast; Z80.1 Family history of malignant neoplasm of trachea, bronchus and lung; Z90.49 Acquired absence of other specified parts of digestive tract; Z90.710 Acquired absence of both cervix and uterus; Z79.82 Long term (current) use of aspirin; Z79.899 Other long term (current) drug therapy; Z28.21 Immunization not carried out because of patient refusal
CPT/HCPCS: 10045; 10081